=== PATIENT | female | born 2000 | race Hispanic/Latino ===

== ENCOUNTER 2018-02-11 10:03 | Emergency (ER) | payer MEDICAID, OTHER ==
[~2018-02-11 10:03] MED LIST: FERR-82 PO; IBUP-2070 PO; IRON-10 PO
== END 2018-02-11 10:51 | disposition home or self-care (01) ==
LOC: EDH 10:03
DX: N94.6 Dysmenorrhea, unspecified (principal)
CPT/HCPCS: 81025

== ENCOUNTER 2018-04-11 13:41 | Emergency (ER) | payer SELFPAY | END 2018-04-11 15:21 | disposition home or self-care (01) | LOC: EDH 13:41 | DX: M25.511 Pain in right shoulder (principal) | CPT/HCPCS: 73030 ==

== ENCOUNTER 2019-01-25 01:19 | Observation (INO) | payer MEDICAID ==
[~2019-01-25] VITALS: Ht 160 cm; Wt 68.9 kg
[2019-01-25] MEDS ORDERED: LACTATED RINGERS 1000ML 1,000 ML IV PRN ×2 (01:38→02:45)
[2019-01-25 02:03] LABS: APPEARANCE,URINE Clear (CLEAR); BILIRUBIN,URINE Negative (NEGATIVE); COLOR,URINE Yellow (YELLOW); GLUCOSE, URINE (UA) Negative (NEGATIVE); KETONES,URINE Negative (NEGATIVE); LEUKOCYTE ESTERASE ,URINE Negative (NEGATIVE); NITRATE,URINE Negative (NEGATIVE); OCCULT BLOOD,URINE Negative (NEGATIVE); PH,URINE 6.5 (5.0-8.0); PROTEIN,URINE Negative (NEGATIVE)
[2019-01-25 02:11] LABS: AMPHET/METH SCREEN,URINE NEGATIVE (NEGATIVE); BARBITURATE SCREEN, URINE NEGATIVE (NEGATIVE); BENZODIAZEPINES SCREEN,URINE NEGATIVE (NEGATIVE); CANNABINOID SCREEN,URINE NEGATIVE (NEGATIVE); COCAINE SCREEN,URINE NEGATIVE (NEGATIVE); OPIATE SCREEN,URINE NEGATIVE (NEGATIVE); PHENCYCLIDINE SCREEN,URINE NEGATIVE (NEGATIVE)
[2019-01-25] MEDS ORDERED: TERBUTALINE SULFATE VIAL 1MG/ML SQ PRN (02:45)
[2019-01-25] MEDS ORDERED: TERBUTALINE SULFATE VIAL 1MG/ML SQ ONE (02:59)
[2019-02-03] MEDS ORDERED: PREN-154 PO (11:16)
== END 2019-01-25 04:20 | disposition home or self-care (01) ==
LOC: EDH 01:19 → LDH 01:20
PROVIDERS: ADMIT Obstetrics & Gynecology; ATTEND Obstetrics & Gynecology
DX: O62.9 Abnormality of forces of labor, unspecified (principal); O46.93 Antepartum hemorrhage, unspecified, third trimester; Z3A.36 36 weeks gestation of pregnancy; Z79.899 Other long term (current) drug therapy
CPT/HCPCS: 80305; 81003; 96372; 99284; G0378 ×3; J3105; 96360; 96365

== ENCOUNTER 2019-02-03 02:17 | Inpatient (IN) | payer MEDICAID | END 2019-02-04 12:25 | disposition home or self-care (01) | LOC: EDH 02:17 → LDH 02:18 → WSH 10:57 | PROC: 10E0XZZ Delivery of Products of Conception, External Approach (ICD-10-PCS; principal; ~2019-02-03) | DX: O80 Encounter for full-term uncomplicated delivery (principal); Z37.0 Single live birth; Z3A.37 37 weeks gestation of pregnancy ==

== ENCOUNTER 2022-03-13 23:38 | Emergency (ER) | payer MEDICAID, OTHER ==
[~2022-03-13] VITALS: Ht 160 cm; Wt 55.3 kg
[~2022-03-13 23:38] MED LIST changes: -FERR-82 PO; -IBUP-2070 PO; -IRON-10 PO; +PREN-154 PO
[2022-03-14] MEDS ORDERED: ACETAMINOPHEN 325 MG TAB PO ONE
[2022-03-14] MEDS ORDERED: 0.9%NACL 1000ML 1,000 ML IV SCH
[2022-03-14 00:06] LABS: BASOPHILS % (AUTO) 0.3 % (0.0-5.0); EOSINOPHILS % (AUTO) 0.2 % (0.0-8.0); HEMATOCRIT 37.6 % (36-48); LYMPHOCYTES % (AUTO) 6.9 % (21.0-51.0); MEAN CORPUSCULAR HGB CONC 34.3 g/dL (32.0-36.0); MEAN CORPUSCULAR VOLUME 90.4 fL (79-99); MONOCYTES % (AUTO) 4.1 % (3.0-13.0); NEUTROPHILS % (AUTO) 88.3 % (40.0-77.0); PLATELET COUNT (AUTO) 209 K/uL (130-400); RED BLOOD CELL COUNT(AUTO) 4.16 MIL/uL (4.00-5.50); RED CELL DISTRIBUTION WIDTH 11.8 % (11.0-15.5); WHITE BLOOD COUNT (AUTO) 12.2 K/uL (4.8-10.8)
[2022-03-14 00:15] LABS: CREATININE 0.7 mg/dL (0.5-1.5); POTASSIUM 3.8 mmol/L (3.5-5.1)
[2022-03-14 00:24] LABS: APPEARANCE,URINE CLEAR (CLEAR); BILIRUBIN,URINE NEGATIVE (NEGATIVE); COLOR,URINE LIGHT-YELLOW (YELLOW); GLUCOSE, URINE (UA) NEGATIVE (NEGATIVE); KETONES,URINE 60 mg/dL (NEGATIVE); LEUKOCYTE ESTERASE ,URINE 25 Leu/uL (NEGATIVE); NITRATE,URINE NEGATIVE (NEGATIVE); OCCULT BLOOD,URINE LARGE (NEGATIVE); PH,URINE 5.5 (5.0-8.0); PROTEIN,URINE 20 mg/dL (NEGATIVE); UROBILINOGEN,URINE 0.2 mg/dL (0.2-1.0)
[2022-03-14 00:25] LABS: HCG,QUALITATIVE URINE NEGATIVE (NEGATIVE)
[2022-03-14 00:26] LABS: ALBUMIN 4.1 g/dL (3.5-5.0); TOTAL PROTEIN, SERUM 8.2 g/dL (6.0-8.3)
[2022-03-14 00:27] LABS: BACTERIA,URINE RARE /HPF (None Seen); MUCUS,URINE RARE LPF (None Seen); RBC,URINE 0-1 /HPF (0-1); SQUAMOUS EPITHELIAL CELL,UR FEW /HPF (0-2)
[2022-03-14] MEDS ORDERED: 0.9%NACL 1000ML 2,000 ML IV ONE (00:30)
[2022-03-14 02:32] VITALS: BP 123/71
== END 2022-03-14 02:50 | disposition home or self-care (01) ==
LOC: EDH 23:38
DX: N94.6 Dysmenorrhea, unspecified (principal)
CPT/HCPCS: 99283; 80053; 84702; 85025; 87088; 81001; 81025; 36415; 96360; J7030 ×2

== ENCOUNTER 2022-11-23 01:20 | Emergency (ER) | payer OTHER ==
[~2022-11-23] VITALS: Ht 165.1 cm; Wt 59.4 kg
[2022-11-23 01:47] LABS: APPEARANCE,URINE CLEAR (CLEAR); BILIRUBIN,URINE NEGATIVE (NEGATIVE); COLOR,URINE LIGHT-YELLOW (YELLOW); GLUCOSE, URINE (UA) NEGATIVE (NEGATIVE); KETONES,URINE NEGATIVE (NEGATIVE); LEUKOCYTE ESTERASE ,URINE 250 Leu/uL (NEGATIVE); NITRATE,URINE NEGATIVE (NEGATIVE); OCCULT BLOOD,URINE NEGATIVE (NEGATIVE); PH,URINE 6.5 (5.0-8.0); PROTEIN,URINE NEGATIVE (NEGATIVE); UROBILINOGEN,URINE 0.2 mg/dL (0.2-1.0)
[2022-11-23 01:54] LABS: BACTERIA,URINE RARE /HPF (None Seen); RBC,URINE 0-1 /HPF (0-1); SQUAMOUS EPITHELIAL CELL,UR FEW /HPF (0-2)
[2022-11-23] MEDS ORDERED: IBUP-1493 PO (02:26)
[2022-11-23] MEDS ORDERED: KETOROLAC 60 MG VIAL (30MG/ML) IM ONE ×2 (02:29→02:30)
[2022-11-23 02:31] VITALS: BP 110/68
== END 2022-11-23 02:37 | disposition home or self-care (01) ==
LOC: EDH 01:20
DX: R10.2 Pelvic and perineal pain (principal)
CPT/HCPCS: 99283; 87088; 81001; 81025; 96372; J1885

== ENCOUNTER 2023-04-22 23:45 | Emergency (ER) | payer OTHER ==
[~2023-04-22] VITALS: Ht 157.5 cm; Wt 54.9 kg
[~2023-04-22 23:45] MED LIST changes: +IBUP-1493 PO
[2023-04-23 01:09] LABS: BASOPHILS # (AUTO) 0.11 K/uL (0.00-0.20); BASOPHILS % (AUTO) 1.4 % (0.0-5.0); EOSINOPHILS # (AUTO) 0.19 K/uL (0.00-0.70); EOSINOPHILS % (AUTO) 2.4 % (0.0-8.0); HEMATOCRIT 35.9 % (36-48); IMMATURE GRANULOCYTE ABSOLUTE 0.02 K/uL (0-1); LYMPHOCYTES # (AUTO) 2.6 K/uL (1.0-4.8); MEAN CORPUSCULAR HEMOGLOBIN 30.8 pg (27.0-33.0); MEAN CORPUSCULAR HGB CONC 33.7 g/dL (32.0-36.0); MEAN CORPUSCULAR VOLUME 91.3 fL (79-99); MONOCYTES # (AUTO) 0.6 K/uL (0.1-1.0); MONOCYTES % (AUTO) 8.1 % (3.0-13.0); NEUTROPHILS # (AUTO) 4.3 K/uL (1.8-7.7); NEUTROPHILS % (AUTO) 54.8 % (40.0-77.0); PLATELET COUNT (AUTO) 258 K/uL (130-400); RED BLOOD CELL COUNT(AUTO) 3.93 MIL/uL (4.00-5.50); RED CELL DISTRIBUTION WIDTH 12.7 % (11.0-15.5); WHITE BLOOD COUNT (AUTO) 7.8 K/uL (4.8-10.8)
[2023-04-23 01:10] LABS: CREATININE 0.6 mg/dL (0.5-1.5); POTASSIUM 3.8 mmol/L (3.5-5.1)
[2023-04-23 01:20] LABS: ALBUMIN 3.6 g/dL (3.5-5.0); BILIRUBIN,TOTAL 0.3 mg/dL (0.2-1.0); TOTAL PROTEIN, SERUM 7.8 g/dL (6.0-8.3)
[2023-04-23 02:30] VITALS: BP 118/76; PULSE 72; RESP 16; O2SAT 99
== END 2023-04-23 02:29 | disposition home or self-care (01) ==
LOC: EDH 23:45
DX: A74.9 Chlamydial infection, unspecified (principal); R10.2 Pelvic and perineal pain; Z79.899 Other long term (current) drug therapy
CPT/HCPCS: 36415; 80053; 84702; 85025